=== PATIENT | female | born 1960 | race Caucasian/White ===

== ENCOUNTER 2019-02-10 23:50 | Emergency (ER) | payer BC, SELFPAY ==
[2019-02-10 23:50] VITALS: BP 139/62; PULSE 104; RESP 20; TEMP 36.7; O2SAT 98
--- NOTE | 2019-02-10 23:56 | W.ED.GENAD ---
Discharge Plan Disposition Patient Disposition: OTHER Condition: Improving Discharge Details Chief Complaint: PsychEval Clinical Impression: Alcohol abuse with intoxication Primary Care Provider: Catalina Harmon ED Provider: Stalin Pavon Home Meds and New Rx's Prescriptions: Continued multivitamin [Daily Multiple] 1 EACH tablet 1 ea PO DAILY RF: 0 coenzyme Q10 100 MG capsule 100 mg PO DAILY RF: 0 lutein 20 MG capsule 20 mg PO DAILY RF: 0 alprazolam 0.25 MG tablet,disintegrating 0.25 mg PO PRN RF: 0 omega-3 fatty acids-fish oil [One-Per-Day [place]-3] 1 EACH capsule,delayed release(DR/EC) 1 ea PO DAILY RF: 0 cholecalciferol (vitamin D3) 5,000 UNIT tablet 5,000 unit PO DAILY RF: 0 aspirin 325 MG tablet 325 mg PO DAILY Qty: 30 RF: 0 milk thistle 175 MG tablet 300 mg PO DAILY RF: 0 ascorbate calcium 500 MG tablet 500 mg PO DAILY RF: 0 hawthorn [hawthorn eddy] 500 MG capsule 500 mg PO DAILY RF: 0 Tumeric 500 mg PO DAILY RF: 0 Discharge Instructions Instructions: Abuse of Alcohol (ED) Additional Instructions: You are medically stable for discharge from the emergency department. Medical Decision Making 58-year-old female who is daily drinker of alcohol. Became upset at home and voiced depression due to some stress in her relationship. EMS was called, patient had ongoing voicing of depression without clear plan to hurt herself. She admits to drinking alcohol and was brought to the emergency department for evaluation. Patient arrives she is afebrile, anxious and crying, does not wish to participate actively in my history taking. Screening medical examination performed including laboratory analysis. Is intoxicated with alcohol level of 250. She is seen by mental health, no longer voicing thoughts of harming herself. She will be discharged from the emergency department to the [place] crisis bed. Lab Data Lab results reviewed: Yes I reviewed the patient's lab results. Laboratory Results - last 24 hr 02/11/19 02/11/19 02/11/19 00:10 00:10 00:10 WBC 7.39 RBC 4.93 Hgb 14.6 Hct 41.9 MCV 85.0 MCH 29.6 MCHC 34.8 RDW 13.7 Plt Count 258 MPV 11.1 H Immature Gran % 0.3 Neutrophils % 71.8 Lymphocytes % 22.1 Monocytes % 4.2 Eosinophils % 1.2 Basophils % 0.4 Absolute Neutrophils 5.31 Absolute Lymphocytes 1.63 Absolute Monocytes 0.31 Absolute Eosinophils 0.09 Absolute Basophils 0.03 Sodium 138 Potassium 3.5 Chloride 103 Carbon Dioxide 22.3 Anion Gap 12.7 H BUN 9 Creatinine 0.79 Estimated GFR/1.73 m2 >= 60.00 Glucose 115 H Calcium 8.4 L Total Bilirubin 0.3 AST 21 ALT 41 Alkaline Phosphatase 76 Total Protein 7.2 Albumin 3.8 TSH 0.93 Salicylates < 2.8 L Acetaminophen < 2 L Ethyl Alcohol 251.2 HPI General Mode of arrival: EMS. Date/Time Provider Initiated Documentation: 02/11/19 00:14. Limitations to Documentation: altered mental status. Information obtained by: patient and EMS. History of Present Illness 58 year old F presents to the emergency department with the chief complaint of Drunk and depressed, described as similar to prior episodes, Quality is described as constant, Patient started experiencing this hour(s) and it has been constant. No relieving factors improve symptom(s), No exacerbating factors reported . Patient notes no other symptoms.. Patient did receive the following treatments prior to arrival, none Related Data Home Medications Medication Instructions Recorded Confirmed alprazolam 0.25 mg PO PRN 01/10/18 03/29/18 cholecalciferol (vitamin D3) 5,000 unit PO DAILY 01/10/18 03/29/18 coenzyme Q10 100 mg PO DAILY 01/10/18 03/29/18 lutein 20 mg PO DAILY 01/10/18 03/29/18 multivitamin [Daily Multiple] 1 ea PO DAILY 01/10/18 03/29/18 omega-3 fatty acids-fish oil 1 ea PO DAILY 01/10/18 03/29/18 [One-Per-Day [place]-3] Tumeric 500 mg PO DAILY 02/20/18 03/29/18 ascorbate calcium 500 mg PO DAILY 02/20/18 03/29/18 hawthorn [hawthorn eddy] 500 mg PO DAILY 02/20/18 03/29/18 milk thistle 300 mg PO DAILY 02/20/18 03/29/18 aspirin 325 mg PO DAILY #30 tab 03/29/18 Previous Rx's Medication Instructions Recorded aspirin 325 mg PO DAILY #30 tab 03/29/18 Allergies Allergy/AdvReac Type Severity Reaction Status Date / Time [id number]-Emq Reductase AdvReac Intermediate Diarrhea Unverified 02/10/19 23:58 Inhibitor General Stated Complaint: PsychEval CARLIE: 2 Review of Systems Review of Systems 8 systems reviewed and otherwise negative [facility] Medical History Anxiety Dry eyes Hyperlipidemia Lyme disease Rotator cuff syndrome Skin lesion of face Ulcerative colitis Vitamin D deficiency Surgical History Appendectomy Colonoscopy - [facility] (02/24/18) Social History Smoking/Tobacco Use Status: Former Tobacco Use Drug use: Never Details: Pt refusing to answer any questions, 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 HEAD: Normocephalic, atraumatic ENT: Mucous membranes moist, oropharynx unremarkable, External ear exam unremarkable EYES: PERRL, EOMI NECK: Full ROM, no NONI, no menigismus CHEST/RESP: Nontender, clear to auscultation bilateral, no wheeze/rhonchi/rales CARDIOVASCULAR: RRR borderline tachycardia, no murmur, rub mae. 2+ Rad pulse bilateral ABDOMEN: Soft, nontender, no mass. +Bowel sounds EXT: Full ROM, no edema, no rash Neuro: Grossly normal neurologic exam, conversant, interactive. Psych: Speech fluent, thoughts congruent, affect anxious Course Vital Signs Temperature 36.7 C 02/10/19 23:50 Pulse 104 H 02/10/19 23:50 Respiratory Rate 20 02/10/19 23:50 Blood Pressure 139/62 02/10/19 23:50 Pulse Oximetry 98 02/10/19 23:50 Temperature 36.7 C 02/10/19 23:50 Temperature Source Skin 02/10/19 23:50 Pulse 104 H 02/10/19 23:50 Respiratory Rate 20 02/10/19 23:50 Blood Pressure 139/62 02/10/19 23:50 Blood Pressure Position Supine 02/10/19 23:50 Pulse Oximetry 98 02/10/19 23:50 Oxygen Delivery Method Room Air 02/10/19 23:50 Oxygen Flow Rate 0 02/10/19 23:50
--- NOTE | 2019-02-10 23:58 | NUR.NOTE ---
Nursing Note: Pt currently laying supine crying, refuses to answer any questions but does shake head yes to verify name and .
--- NOTE | 2019-02-11 | ED.GENADUL_ITS ---
Discharge Plan Disposition Patient Disposition: OTHER Condition: Improving Discharge Details Chief Complaint: PsychEval Clinical Impression: Alcohol abuse with intoxication Primary Care Provider: Catalina Harmon ED Provider: Stalin Pavon Home Meds and New Rx's Prescriptions: Continued multivitamin [Daily Multiple] 1 EACH tablet 1 ea PO DAILY RF: 0 coenzyme Q10 100 MG capsule 100 mg PO DAILY RF: 0 lutein 20 MG capsule 20 mg PO DAILY RF: 0 alprazolam 0.25 MG tablet,disintegrating 0.25 mg PO PRN RF: 0 omega-3 fatty acids-fish oil [One-Per-Day [place]-3] 1 EACH capsule,delayed release(DR/EC) 1 ea PO DAILY RF: 0 cholecalciferol (vitamin D3) 5,000 UNIT tablet 5,000 unit PO DAILY RF: 0 aspirin 325 MG tablet 325 mg PO DAILY Qty: 30 RF: 0 milk thistle 175 MG tablet 300 mg PO DAILY RF: 0 ascorbate calcium 500 MG tablet 500 mg PO DAILY RF: 0 hawthorn [hawthorn eddy] 500 MG capsule 500 mg PO DAILY RF: 0 Tumeric 500 mg PO DAILY RF: 0 Discharge Instructions Instructions: Abuse of Alcohol (ED) Additional Instructions: You are medically stable for discharge from the emergency department. Medical Decision Making 58-year-old female who is daily drinker of alcohol. Became upset at home and voiced depression due to some stress in her relationship. EMS was called, patient had ongoing voicing of depression without clear plan to hurt herself. She admits to drinking alcohol and was brought to the emergency department for evaluation. Patient arrives she is afebrile, anxious and crying, does not wish to p articipate actively in my history taking. Screening medical examination performed including laboratory analysis. Is intoxicated with alcohol level of 250. She is seen by mental health, no longer voicing thoughts of harming herself. She will be discharged from the emergency department to the [facility] crisis bed. Lab Data Lab results reviewed: Yes I reviewed the patient's lab results. Laboratory Results - last 24 hr 02/11/19 02/11/19 02/11/19 00:10 00:10 00:10 WBC 7.39 RBC 4.93 Hgb 14.6 Hct 41.9 MCV 85.0 MCH 29.6 MCHC 34.8 RDW 13.7 Plt Count 258 MPV 11.1 H Immature Gran % 0.3 Neutrophils % 71.8 Lymphocytes % 22.1 Monocytes % 4.2 Eosinophils % 1.2 Basophils % 0.4 Absolute Neutrophils 5.31 Absolute Lymphocytes 1.63 Absolute Monocytes 0.31 Absolute Eosinophils 0.09 Absolute Basophils 0.03 Sodium 138 Potassium 3.5 Chloride 103 Carbon Dioxide 22.3 Anion Gap 12.7 H BUN 9 Creatinine 0.79 Estimated GFR/1.73 m2 >= 60.00 Glucose 115 H Calcium 8.4 L Total Bilirubin 0.3 AST 21 ALT 41 Alkaline Phosphatase 76 Total Protein 7.2 Albumin 3.8 TSH 0.93 Salicylates < 2.8 L Acetaminophen < 2 L Ethyl Alcohol 251.2 HPI General Mode of arrival: EMS . Date/Time Provider Initiated Documentation: 02/11/19 00:14 . Limitations to Documentation: altered mental status . Information obtained by: patient and EMS . History of Present Illness 58 year old F presents to the emergency department with the chief complaint of Drunk and depressed, described as similar to prior episodes, Quality is described as constant, Patient started experiencing this hour(s) and it has been constant. No relieving factors improve symptom(s), No exacerbating factors reported . Patient notes no other symptoms.. Patient did receive the following treatments prior to arrival, none Related Data Home Medications Medication Instructions Recorded Confirmed alprazolam 0.25 mg PO PRN 01/10/18 03/29/18 cholecalciferol (vitamin D3) 5,000 unit PO DAILY 01/10/18 03/29/18 coenzyme Q10 100 mg PO DAILY 01/10/18 03/29/18 lutein 20 mg PO DAILY 01/10/18 03/29/18 multivitamin [Daily Multiple] 1 ea PO DAILY 01/10/18 03/29/18 omega-3 fatty acids-fish oil 1 ea PO DAILY 01/10/18 03/29/18 [One-Per-Day [place]-3] Tumeric 500 mg PO DAILY 02/20/18 03/29/18 ascorbate calcium 500 mg PO DAILY 02/20/18 03/29/18 hawthorn [hawthorn eddy] 500 mg PO DAILY 02/20/18 03/29/18 milk thistle 300 mg PO DAILY 02/20/18 03/29/18 aspirin 325 mg PO DAILY #30 tab 03/29/18 Previous Rx's Medication Instructions Recorded aspirin 325 mg PO DAILY #30 tab 03/29/18 Allergies Allergy/AdvReac Type Severity Reaction Status Date / Time Xiekvzp-Fqb-Wts Reductase AdvReac Intermediate Diarrhea Unverified 02/10/19 23:58 Inhibitor General Stated Complaint: PsychEval CARLIE: 2 Review of Systems Review of Systems 8 systems reviewed and otherwise negative [facility] Medical History Anxiety Dry eyes Hyperlipidemia Lyme disease Rotator cuff syndrome Skin lesion of face Ulcerative colitis Vitamin D deficiency Surgical History Appendectomy Colonoscopy - [facility] (02/24/18) Social History Smoking/Tobacco Use Status: Former Tobacco Use Drug use: Never Details: Pt refusing to answer any questions, 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 HEAD: Normocephalic, atraumatic ENT: Mucous membranes moist, oropharynx unremarkable, External ear exam unremarkable EYES: PERRL, EOMI NECK: Full ROM, no NONI, no menigismus CHEST/RESP: Nontender, clear to auscultation bilateral, no wheeze/rhonchi/rales CARDIOVASCULAR: RRR borderline tachycardia, no murmur, rub mae. 2+ Rad pulse bilateral ABDOMEN: Soft, nontender, no mass. +Bowel sounds EXT: Full ROM, no edema, no rash Neuro: Grossly normal neurologic exam, conversant, interactive. Psych: Speech fluent, thoughts congruent, affect anxious Course Vital Signs Temperature 36.7 C 02/10/19 23:50 Pulse 104 H 02/10/19 23:50 Respiratory Rate 20 02/10/19 23:50 Blood Pressure 139/62 02/10/19 23:50 Pulse Oximetry 98 02/10/19 23:50 Temperature 36.7 C 02/10/19 23:50 Temperature Source Skin 02/10/19 23:50 Pulse 104 H 02/10/19 23:50 Respiratory Rate 20 02/10/19 23:50 Blood Pressure 139/62 02/10/19 23:50 Blood Pressure Position Supine 02/10/19 23:50 Pulse Oximetry 98 02/10/19 23:50 Oxygen Delivery Method Room Air 02/10/19 23:50 Oxygen Flow Rate 0 02/10/19 23:50
[2019-02-11] MEDS: Normal Saline 1,000 ML 1000 ML IV (00:10)
[2019-02-11] MEDS: Normal Saline Flush 10 ML SYR IVP (00:10)
[2019-02-11 00:20] LABS: Abs Immature Grans 0.02 k/cumm (0.0-0.09); Absolute Basophil Count 0.03 k/cumm (0.0-0.2); Absolute Eosinophil Count 0.09 k/cumm (0.0-0.7); Absolute Lymphocyte Count 1.63 k/cumm (1.2-3.4); Absolute Monocyte Count 0.31 k/cumm (0.11-0.7); Absolute Neutrophil Count 5.31 k/cumm (1.2-6.7); Basophils % 0.4; Eosinophils % 1.2; HCT 41.9 % (36.0-46.0); HGB 14.6 g/dL (12.0-15.5); Immature Grans % 0.3; Lymphocytes % 22.1; Mean Corp. HGB Concentration 34.8 g/dL (32.0-36.0); Mean Corpuscular Hemoglobin 29.6 pg (27.0-33.0); Mean Platelet Volume 11.1 fL (8.0-11.0); Monocytes % 4.2; Neutrophils % 71.8; Platelet Count 258 x1000/uL (130-400); RBC 4.93 m/cumm (4.00-5.20); RBC Distribution Width 13.7 % (11.7-14.6); White Blood Cell Count 7.39 k/cumm (4.4-10.8)
[2019-02-11 00:46] LABS: ALT 41 U/L (12-78); AST 21 U/L (15-37); Albumin 3.8 g/dL (3.4-5.0); Alkaline Phosphatase 76 U/L (46-116); Anion Gap 12.7 mmol/L (3-11); BUN 9 mg/dL (7-18); Bilirubin, Total 0.3 mg/dL (0.2-1.0); CO2 22.3 mmol/L (21.0-32.0); CREATININE 0.79 mg/dL (0.55-1.02); Calcium 8.4 mg/dL (8.5-10.1); Chloride 103 mmol/L (98-107); ETHANOL BLOOD 251.2 mg/dL (<3); Glucose 115 mg/dL (70-100); Potassium 3.5 mmol/L (3.5-5.1); Sodium 138 mmol/L (136-145); TSH 0.93 uIU/mL (0.358-3.74); Total Protein 7.2 g/dL (6.4-8.2)
[2019-02-11 01:09] LABS: Salicylate < 2.8 mg/dL (2.8-20.0)
[2019-02-11 01:11] LABS: Acetaminophen < 2 ug/mL (10-30)
== END 2019-02-11 01:42 | disposition other institution (70) ==
PROVIDERS: Emergency Provider Emergency Medicine; PCP Nurse Practitioner Family
DX: F10.120 Alcohol abuse with intoxication, uncomplicated (principal); F41.8 Other specified anxiety disorders
CPT/HCPCS: 36415; 80053; 80307; 99284; 80320; 80329; 81003; 84443; 85025

== ENCOUNTER 2019-05-21 12:52 | Outpatient (REF) | payer BC, SELFPAY ==
[2019-05-21 13:20] LABS: Anion Gap 9.7 mmol/L (3-11); BUN 12 mg/dL (7-18); CO2 25.3 mmol/L (21.0-32.0); CREATININE 0.86 mg/dL (0.55-1.02); Calcium 9.1 mg/dL (8.5-10.1); Calculated LDL 178 mg/dL; Chloride 106 mmol/L (98-107); Cholesterol 259 mg/dL (50-200); Glucose 88 mg/dL (70-100); HDL Cholesterol 64 mg/dL (40-60); Potassium 4.4 mmol/L (3.5-5.1); Sodium 141 mmol/L (136-145); Triglyceride 88 mg/dL (30-150)
== END 2019-05-21 13:12 ==
LOC: NCHCN 12:52
PROVIDERS: PCP Nurse Practitioner Family; Visit Provider Nurse Practitioner Family
DX: E78.5 Hyperlipidemia, unspecified (principal); Z00.00 Encounter for general adult medical examination without abnormal findings
CPT/HCPCS: 80048; 80061; 83721

== ENCOUNTER 2019-07-22 07:46 | Emergency (ER) | payer BC, SELFPAY ==
[2019-07-22 07:51] VITALS: BP 169/85; PULSE 85; RESP 16; TEMP 36.6; O2SAT 98
--- NOTE | 2019-07-22 08:20 | DI.CT_ITS ---
EXAM: CT CHEST PE CTA CLINICAL HISTORY: pain in back, worse breathing, sharp, mid scapula. TECHNIQUE: Examination was carried out according to the usual protocol with an intravenous administr ation of 60 cc of Omnipaque 350. COMPARISON: No exams were available for comparison FINDINGS: There is no evidence of PE. Small regions of dependent atelectasis are demonstrated. No infiltrate is seen. There is no pleural effusion. The heart is not enlarged. There is no pericardial effusion. There is no evidence of an aortic aneurysm or dissection. IMPRESSION: No evidence of PE. No evidence of acute cardiopulmonary disease.
--- NOTE | 2019-07-22 08:20 | DI.US_ITS ---
EXAM: US ABDOMEN LIMITED CLINICAL HISTORY: right shoulder pain, r/o cholecystitis. TECHNIQUE: Ultrasound performed using standard protocol. COMPARISON: No exams were available for comparison FINDINGS: Right upper quadrant ultrasound was carried out according to the usual protocol. There is no Dillard' s sign. A 2 mm echogenic area is noted in the gallbladder wall which could represent a polyp or adhe rent gallstone. There is no evidence of ductal dilatation. There are no findings to suggest acute c holecystitis. IMPRESSION: A 2 mm echogenic area is noted in the gallbladder wall which could represent a small polyp or adheren t gallstone. The examination is otherwise unremarkable.
--- NOTE | 2019-07-22 08:20 | W.ED.GENAD ---
Discharge Plan Disposition Patient Disposition: HOME Condition: Good Discharge Details Chief Complaint: Orthopedic Clinical Impression: Back pain Primary Care Provider: Catalina Harmon ED Provider: Chantell Adams Home Meds and New Rx's Prescriptions: New cyclobenzaprine 10 mg tablet 10 mg PO TID PRN (Reason: muscle spasm) Qty: 10 RF: 0 No Action multivitamin [Daily Multiple] 1 EACH tablet 1 ea PO DAILY RF: 0 coenzyme Q10 100 MG capsule 100 mg PO DAILY RF: 0 lutein 20 MG capsule 20 mg PO DAILY RF: 0 alprazolam 0.25 MG tablet,disintegrating 0.25 mg PO PRN RF: 0 One-Per-Day [place]-3 1 EACH capsule,delayed release(DR/EC) 1 ea PO DAILY RF: 0 cholecalciferol (vitamin D3) 5,000 UNIT tablet 5,000 unit PO DAILY RF: 0 aspirin 325 MG tablet 325 mg PO DAILY Qty: 30 RF: 0 milk thistle 175 MG tablet 300 mg PO DAILY RF: 0 ascorbate calcium (vitamin C) 500 MG tablet 500 mg PO DAILY RF: 0 hawthorn eddy 500 MG capsule 500 mg PO DAILY RF: 0 Tumeric 500 mg PO DAILY RF: 0 Discharge Instructions Instructions: Back Pain (ED) Additional Instructions: Ice or heat to the back for discomfort. Rest activities as tolerated. Next and muscle relaxant as prescribed. Do not drive, drink, work while taking this medication. You do have a gallstone present in the gallbladder it is unclear if this is related to your pain. Follow-up with surgeon for reevaluation as discussed. Follow-up with your primary care doctor for reevaluation. Return for any worsening, concerns, fever, increase in symptoms, worsening symptoms or alarming symptoms sooner if needed Referrals: Kerry Meza DO [OSTEOPATHIC DOCTOR] - Medical Decision Making Is a 58-year-old patient who presents for right scapula pain posteriorly. Patient denies any associated headache or dizziness. Denies chest pain, difficulty breathing or shortness of breath or wheezing. Mild increase in pain with deep breathing. Patient reports no nausea, vomiting, diarrhea. Denies changes in urination or bowel movements. Patient denies fever, chills or malaise. Patient reports she awoke with sharp pain this morning which has been constant since onset. Patient did also report 1 month ago a back pain which was worked up in the emergency room ultimately diagnosed as an ulcer. Patient did try Tums and milk this morning without relief of the pain she experienced. On exam patient has no significant reproducible pain in her back but indicates the mid of the right scapula site of pain. Patient does have mild right upper quadrant pain with palpation on exam. No peritoneal signs, rebound or guarding otherwise. Patient's vital signs are reassuring and patient is afebrile. Given patient's complaints of pain and recent episode of pain I will order CT a image of chest and an ultrasound of the right upper quadrant to be sure that there is no cardiothoracic cause of her pain or gallbladder involvement and referred pain. Troponins ordered although patient has no other associated cardiac complaints today. Patient's EKG reveals a rate of 67, sinus rhythm, no ST segment changes noted. Mild left axis shift with no significant change from previous EKG from 03/29/2018. Reviewed with my attending, Batsheva Jasmine Patient given multiple doses of pain medication to try to relieve her back pain. Patient is seemingly more comfortable however still has some persistence of pain. Toradol per provided after CT evaluation was unremarkable for dissection. Discussed differential diagnosis which includes musculoskeletal back pain, spine related radicular pain, shingles, gallbladder colic with radiation. Patient agrees to follow-up with her primary care doctor. Surgical referral provided for identified gallstones although there is no indication of cholecystitis at this time. Patient reports her understanding. Agrees with plan of care. The patient was stable. Prior to discharge, my usual and customary return precautions were reviewed with the patient - this included follow-up instructions and reasons to return to the Emergency Department if conditions worsens, does not improve as expected, or other new concerns arise. HPI General Date/Time Provider Initiated Documentation: 07/22/19 08:02. HPI Narrative: This 58-year-old woman presents to the emergency room awaking with sharp back pain reportedly near right scapula. Patient reports very sharp constant pain since awaking this morning which she believes may have woken her from sleep. Patient reports pain is intolerable. Patient denies radiation of pain. Patient does report pain is worse with deep breathing. Tried milk and Tums at home without any relief of her pain. Patient does report 1 month ago she was evaluated for back pain in the mid back which was thought to be also related after her evaluation. Does report mild epigastric discomfort. Denies any nausea, vomiting or diarrhea. Patient denies difficulty breathing, shortness of breath, cough or wheezing. Denies dizziness or headache. Denies weakness. Patient is obviously uncomfortable in bed. No new fever, chills. Patient has been able to eat and drink without difficulty. Patient does report yesterday a single isolated choking episode when having a hamburger. Otherwise no difficulty swallowing or eating. No appetite this morning Related Data Home Medications Medication Instructions Recorded Confirmed One-Per-Day [place]-3 1 ea PO DAILY 01/10/18 07/22/19 alprazolam 0.25 mg PO PRN 01/10/18 07/22/19 cholecalciferol (vitamin D3) 5,000 unit PO DAILY 01/10/18 07/22/19 coenzyme Q10 100 mg PO DAILY 01/10/18 07/22/19 lutein 20 mg PO DAILY 01/10/18 07/22/19 multivitamin [Daily Multiple] 1 ea PO DAILY 01/10/18 07/22/19 Tumeric 500 mg PO DAILY 02/20/18 07/22/19 ascorbate calcium (vitamin C) 500 mg PO DAILY 02/20/18 03/29/18 hawthorn eddy 500 mg PO DAILY 02/20/18 07/22/19 milk thistle 300 mg PO DAILY 02/20/18 07/22/19 aspirin 325 mg PO DAILY #30 tab 03/29/18 07/22/19 cyclobenzaprine 10 mg PO TID PRN #10 tab 07/22/19 Previous Rx's Medication Instructions Recorded aspirin 325 mg PO DAILY #30 tab 03/29/18 cyclobenzaprine 10 mg PO TID PRN #10 tab 07/22/19 Allergies Allergy/AdvReac Type Severity Reaction Status Date / Time Pcfeayt-Akl-Swz Reductase AdvReac Intermediate Diarrhea Unverified 07/22/19 07:53 Inhibitor General Stated Complaint: Orthopedic CARLIE: 3 Review of Systems Review of Systems ROS Unobtainable: All systems reviewed & are unremarkable except as noted in HPI and below Constitutional Constitutional: Denies chills, Denies fatigue, Denies fever(s), Denies headache(s), Denies lethargy and Denies malaise ENT Ears, Nose, Mouth, and Throat: Denies vertigo, Denies dizziness, Denies headache(s), Denies neck pain, Denies sinus pain, Denies sinus pressure and Denies sore throat Cardiovascular Cardiovascular: Denies chest pain with activity, Denies rapid heart rate, Denies lightheadedness, Denies palpitations and Denies orthopnea Respiratory Respiratory: Denies cough, Reports pain on inspiration and Denies wheezing Gastrointestinal Gastrointestinal: Reports abdominal pain (mild RUQ), Denies constipation, Denies diarrhea and Denies vomiting Genitourinary Genitourinary: Denies hematuria, Denies urinary hesitancy and Denies urinary urgency Musculoskeletal Musculoskeletal: Denies neck pain Neurologic Neurologic: Denies vertigo, Denies dizziness and Denies headache(s) Endocrine Endocrine: Denies fatigue and Denies palpitations Allergic/Immunologic Allergic/Immunologic: Denies wheezing [facility] Medical History Anxiety Dry eyes Hyperlipidemia Lyme disease Rotator cuff syndrome Skin lesion of face Ulcerative colitis Vitamin D deficiency Surgical History Appendectomy Colonoscopy - [facility] [place] (02/24/18) Social History Smoking/Tobacco Use Status: Former Tobacco Use Drug use: Never Details: Pt refusing to answer any questions, 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 Well hydrated. Alert and alert. HENMT: Head nomocephalic, normal to inspection. Atraumatic. Hearing grossly normal. EYES: General normal appearance. Alignment normal. Eyelids normal. Conjunctiva normal. NECK: Normal visual inspection. FROM. Trachea midline. No Midline tenderness. CHEST: Normal insepection of the chest. RESP: Normal respiratory effort. Speaking full sentences. No cough. No audible wheezing. No retractions. Breath sounds equal and full bilaterally. No wheezing, rhonchi or rales CARDIO: No JVD. No murmurs or rubs Back; no cervical, thoracic, lumbar pain with palpation. No pain with palpation surrounding the scapula on the right. No winging of the scapula. No obvious skin changes or swelling notable. MUSCULOSKELETAL: Normal Gait. FROM of all extremities. Full range of motion of right arm without pain reproduced and back or scapula. SKIN: Normal. Dry. No rashes. NEURO: Alert and awake. Speech clear. PSYCH: Normal affect. Cooperative. Course Vital Signs Vital signs: Vital Signs Temperature 36.6 C 07/22/19 07:51 Pulse 85 07/22/19 07:51 Respiratory Rate 16 07/22/19 07:51 Blood Pressure 169/85 H 07/22/19 07:51 Pulse Oximetry 98 07/22/19 07:51 Temperature 36.6 C 07/22/19 07:51 Temperature Source Skin 07/22/19 07:51 Pulse 85 07/22/19 07:51 Respiratory Rate 16 07/22/19 07:51 Respiratory Effort 07/22/19 07:51 Blood Pressure 169/85 H 07/22/19 07:51 Blood Pressure Position Sitting 07/22/19 07:51 Pulse Oximetry 98 07/22/19 07:51 Oxygen Delivery Method Room Air 07/22/19 07:51 Oxygen Flow Rate 0 07/22/19 07:51 Pain Level 10 07/22/19 07:51
[2019-07-22 08:51] LABS: Abs Immature Grans 0.02 k/cumm (0.0-0.09); Absolute Basophil Count 0.03 k/cumm (0.0-0.2); Absolute Lymphocyte Count 1.59 k/cumm (1.2-3.4); Absolute Monocyte Count 0.51 k/cumm (0.11-0.7); Absolute Neutrophil Count 6.18 k/cumm (1.2-6.7); Basophils % 0.4; Eosinophils % 2.3; HCT 43.6 % (36.0-46.0); HGB 14.7 g/dL (12.0-15.5); Immature Grans % 0.2; Lymphocytes % 18.6; Mean Corp. HGB Concentration 33.7 g/dL (32.0-36.0); Mean Corpuscular Hemoglobin 29.1 pg (27.0-33.0); Mean Corpuscular Volume 86.3 fL (80-95); Neutrophils % 72.5; Platelet Count 282 x1000/uL (130-400); RBC 5.05 m/cumm (4.00-5.20); RBC Distribution Width 14.2 % (11.7-14.6); White Blood Cell Count 8.53 k/cumm (4.4-10.8)
[2019-07-22] MEDS: Normal Saline Flush 10 ML SYR IVP ×2 (08:52→11:47)
[2019-07-22] MEDS: ACETAMINOPHEN 1,000 MG/100 ML BTL 400 MG IVPB (08:52)
[2019-07-22 09:30] LABS: ALT 30 U/L (14-59); AST 17 U/L (15-37); Albumin 3.9 g/dL (3.4-5.0); Alkaline Phosphatase 84 U/L (46-116); BUN 16 mg/dL (7-18); Bilirubin, Total 0.5 mg/dL (0.2-1.0); CREATININE 0.98 mg/dL (0.55-1.02); Chloride 104 mmol/L (98-107); Estimated GFR 57.89 (mL/min/1.73m2); Glucose 101 mg/dL (70-100); Lipase 127 U/L (73-393); Potassium 3.9 mmol/L (3.5-5.1); Sodium 141 mmol/L (136-145); Total Protein 7.3 g/dL (6.4-8.2)
[2019-07-22 09:31] LABS: Troponin I < 0.05 ng/mL (0.00-0.06)
[2019-07-22] MEDS: Ondansetron 4 MG/2 ML VIAL IVP (09:35)
[2019-07-22] MEDS: Omnipaque 350 MG/ML 100 ML BTL IJ (09:57)
[2019-07-22] MEDS: Normal Saline 1,000 ML 1000 ML IV (10:08)
[2019-07-22] MEDS: Ketorolac 15 MG/ML VIAL IVP (11:45)
[2019-07-22 12:17] VITALS: BP 131/76; PULSE 68; RESP 16; TEMP 36.6; O2SAT 100
[2019-07-22 12:25] VITALS: BP 131/76; PULSE 68; RESP 16; TEMP 36.6; O2SAT 100
== END 2019-07-22 12:30 | disposition home or self-care (01) ==
PROVIDERS: Emergency Provider Physician Assistant; PCP Nurse Practitioner Family
DX: M54.6 Pain in thoracic spine (principal); R10.13 Epigastric pain
CPT/HCPCS: 36415; 71275; 80053; 83690; 93005; 96361; 96365; 96375; 96376; 99285; 76705; 84484; 85025; 87086; 93010; J0131; J1885; J2405; J3490

== ENCOUNTER 2020-05-04 12:06 | Outpatient (CLI) | payer BC, SELFPAY ==
--- NOTE | 2020-05-04 | DI.RAD_ITS ---
EXAM: XR CHEST 2V PA LATERAL CLINICAL HISTORY: LT FLANK PAIN, R10.9, CHEST WALL PAIN TECHNIQUE: 2D digital imaging was performed. COMPARISON: No exams were available for comparison FINDINGS: MEDIASTINUM: Normal. HEART: Normal. PULMONARY VASCULATURE: Normal. LUNGS: Clear. PLEURAL SPACE: No pleural effusion or pneumothorax. BONE:Normal. OTHER FINDINGS:Normal. IMPRESSION: No acute pulmonary findings. DATA REPOSITORY: RADIATION DOSE DELIVERED:
--- NOTE | 2020-05-04 | DI.US_ITS ---
EXAM: US AAA SCREENING CLINICAL HISTORY: RADIATING BACK PAIN COMPARISON: CT CT CHEST PE CTA from 07/22/2019 FINDINGS: Abdominal Aorta: Proximal: 2.2 x 2.4 cm Mid: 1.8 x 1.7 cm Distal: 1.5 x 1.5 cm Iliac's: Right: 0.9 x 0.8 cm Left: 1 x 0.9 cm No significant atherosclerotic disease is seen. IMPRESSION: No evidence of abdominal aortic aneurysm. DATA REPOSITORY:
== END 2020-05-04 12:26 ==
PROVIDERS: PCP Nurse Practitioner Family; Visit Provider Nurse Practitioner Family
DX: M54.9 Dorsalgia, unspecified (principal); R10.9 Unspecified abdominal pain; R07.89 Other chest pain
CPT/HCPCS: 76706; 71046

== ENCOUNTER 2020-10-03 00:55 | Outpatient (CLI) | payer BC, SELFPAY ==
--- NOTE | 2020-10-03 | DI.MAMMO_ITS ---
EXAM: MG MAMMO SCREENING CLINICAL HISTORY: SCREENING, [facility],Z00.00 TECHNIQUE: Bilateral full field digital CC and MLO mammographic images were obtained with 3D tomosyn thesis and utilizing computer aided detection (CAD). COMPARISON: Available for comparison. FINDINGS: Masses/Architectural Distortion: There is a focal asymmetric density in the upper left breast seen on the mediolateral oblique view 5 cm from the nipple. Microcalcifications: No suspicious pleomorphic-type are seen. Skin Thickening/Nipple Retraction: None. IMPRESSION: 1. Focal asymmetric density in the upper left breast on the MLO view. 2. Spot compression view and left breast ultrasound are recommended for further evaluation. BI-RADS Category 0 - Assessment Incomplete: Need additional imaging evaluation Breast Density - Category C - Heterogeneously dense Breast density category C or D implies that the patient has dense breast tissue. Dense breast tissue is very common and is not abnormal but dense breast tissue can make it harder to find cancer on a ma mmogram. Also, dense breast tissue may increase their breast cancer risk. This information about the result of the mammogram report was provided to the patient to raise their awareness. Use this report when you speak with the patient about their risks for breast cancer, which includes their family hist ory. At that time, you may recommend for more screening tests (Ultrasound or MRI) as they might be us eful based on their risk. A negative radiographic report should not delay biopsy if a dominant or clinically suspicious mass is present. Up to ten percent of cancers are not identified on mammography. A negative report may reinforce clinical impression. Adenosis and dense breasts may obscure an underlying neoplasm. False positive reports average 6 to 10%. Patient will receive a letter notifying them of these results.
== END 2020-10-03 01:15 ==
PROVIDERS: PCP Nurse Practitioner Family; Visit Provider Nurse Practitioner Family
DX: R92.8 Other abnormal and inconclusive findings on diagnostic imaging of breast (principal); Z12.31 Encounter for screening mammogram for malignant neoplasm of breast
CPT/HCPCS: 77063; 77067

== ENCOUNTER 2020-10-12 01:20 | Outpatient (CLI) | payer BC, SELFPAY ==
--- NOTE | 2020-10-12 | DI.US_ITS ---
EXAM: MG MAMMO SCREEN CALL BACK UNI CLINICAL HISTORY: F/U MAMMO,ASYMMETRIC DENSITY UPPER LT BREAST TECHNIQUE: Mammograms were interpreted according to the usual protocol including computer analysis w ith CAD system, tomosynthesis and C-view imaging. COMPARISON: FINDINGS: Additional mammographic views the left breast and left breast ultrasound are interpreted in conjuncti on. These examinations were obtained to evaluate questionable focal area of asymmetric density in th e superior central portion of left breast seen on recent mammogram. Additional mammographic views fa il to show a discrete mass. Breast ultrasound shows no evidence of a mass or cyst. IMPRESSION: No specific evidence of malignancy at this time. Follow-up unilateral left breast mammogram recommen ded in 6 months. BI-RADS Category 3 - 6 month - Probably Benign Finding: Recommend follow-up mammography in 6 months Breast Density - Category C - Heterogeneously dense
== END 2020-10-12 01:40 ==
PROVIDERS: PCP Nurse Practitioner Family; Visit Provider Nurse Practitioner Family
DX: R92.8 Other abnormal and inconclusive findings on diagnostic imaging of breast
CPT/HCPCS: 76642; 77063; 77067

== ENCOUNTER 2021-01-28 10:11 | Emergency (ER) | payer BC, SELFPAY ==
[2021-01-28 10:15] VITALS: BP 160/92; PULSE 80; RESP 16; TEMP 37; O2SAT 98
--- NOTE | 2021-01-28 10:41 | ED.GENADUL_ITS ---
Discharge Plan Disposition Patient Disposition: HOME Condition: Stable Discharge Details Clinical Impression: Headache, Visual disturbance Primary Care Provider: Catalina Harmon ED Provider: Fanta Pickens Home Meds and New Rx's Prescriptions: Continued coenzyme Q10 100 MG capsule 100 mg PO DAILY RF: 0 alprazolam 0.25 MG tablet,disintegrating 0.25 mg PO PRN RF: 0 One-Per-Day Charlotte-3 1 EACH capsule,delayed release(DR/EC) 1 ea PO DAILY RF: 0 cholecalciferol (vitamin D3) 5,000 UNIT tablet 5,000 unit PO DAILY RF: 0 aspirin 325 MG tablet 325 mg PO DAILY Qty: 30 RF: 0 ascorbate calcium (vitamin C) 500 MG tablet 500 mg PO DAILY RF: 0 Tumeric 500 mg PO DAILY RF: 0 No Action multivitamin [Daily Multiple] 1 EACH tablet 1 ea PO DAILY RF: 0 lutein 20 MG capsule 20 mg PO DAILY RF: 0 milk thistle 175 MG tablet 300 mg PO QTUTHSA RF: 0 hawthorn eddy 500 MG capsule 500 mg PO DAILY RF: 0 cyclobenzaprine 10 mg tablet 10 mg PO TID PRN (Reason: muscle spasm) Qty: 10 RF: 0 Discharge Instructions Instructions: Migraine Headache (ED) Additional Instructions: Follow up with primary care provider in 3-5 days. Return to ED sooner if any worsening or concerns. Increase oral fluids. Please take Tylenol or ibuprofen every 4-6 hours as needed for pain. Try to decrease screen time if possible. You are placed on [facility] care management list for follow-up with neurology they should be contacting you with an appointment if you do not hear from them the next few days please call and make an appointment yourself. Return to the ED for any worsening headache, worsening episodes of blurry vision or any attempts You may try Excedrin Migraine or similar [id number]. Stand Alone Forms: Work Release Referrals: Catalina Harmon [Primary Care Provider] - Ayala Vinson MD [ [facility] STAFF PHYSICIAN] - 1 week (Visual Disturbances, Right side headache) Discharge Data Discharge Date/Time-TO BE ENTERED AT DEPARTURE: 01/28/21 12:36 Medical Decision Making 50-year-old female presents to the ER chief complaint of visual disturbances and right-sided headache which began yesterday. She states that she was at work looking at a computer screen when she saw abnormal shapes she describes flashes of white light and broken glass. She then left her place of work was driving home when a right sided headache began. She describes pain as pressure. She states that she went home took an Aleve and the pain and symptoms subsided. Today when again looking at a computer screen had another episode of the visual disturbances and return of the right sided headache she denies any ringing in her ear no nuchal rigidity she is not sensitive to sound positive photophobia. She denies any diplopia. She also reports hitting the right side of her head approximately 2 weeks ago on a window no loss of consciousness at that time however she saw stars. She has no facial droop no focal neuro deficits. She denies any numbness tingling no weakness in her extremities. She denies any fever, chills, no vomiting. She has a past medical history of anxiety, hyperlipidemia, Lyme disease, vitamin D deficiency. She denies taking any blood thinners, she has not taken aspirin in the last couple of days Labs ordered CBC and CMP which are unremarkable. Patient was given 1 L normal saline, 10 mg dexamethasone, [address] head and neck venogram ordered to rule out sinus venous sinus thrombosis or other pathology to explain the visual disturbances and headache V rad results are noted below Exam: CT Angiography Head With Contrast, Venogram Exam date and time: 01/28/2021 10:37 AM Age: 60 years old Clinical indication: Visual disturbance COMPARISON: No relevant prior studies available. FINDINGS: Cavernous Sinus: No thrombosis. Veins: No thrombosis. Arteries: There is no stenosis, occlusion, nor aneurysm. Minimal atheromatous calcification of the bilateral cavernous carotid arteries Brain: No definite mass, mass effect, or midline shift. Cerebral ventricles: No ventriculomegaly. Soft tissues: Unremarkable. Paranasal sinuses: Mild membrane thickening in left maxillary antrum IMPRESSION: 1. No venous thrombosis. 2. Normal CT angiogram of the brain Exam: CT Angiography Neck With Contrast Exam date and time: 01/28/2021 10:37 AM Age: 60 years old Clinical indication: Visual disturbance TECHNIQUE: Imaging protocol: Computed tomography angiography of the neck with contrast. 3D rendering (Not supervised by radiologist): MIP and/or 3D reconstructed images were created by the technologist. Contrast material: VIVPAUE 320; Contrast volume: 85 ml; Contrast route: INTRAVENOUS (IV); COMPARISON: No relevant prior studies available. FINDINGS: Right common carotid artery: No stenosis. No dissection or occlusion. Right internal carotid artery: No stenosis of the extracranial segment. No dissection or occlusion. Right external carotid artery: No occlusion or stenosis of the origin. Right vertebral artery: No stenosis. No dissection or occlusion. Left common carotid artery: No stenosis. No dissection or occlusion. Left internal carotid artery: No stenosis of the extracranial segment. No dissection or occlusion. Left external carotid artery: No occlusion or stenosis of the origin. Left vertebral artery: No stenosis. No dissection or occlusion. Bones/joints: No acute fracture. 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 No significant soft tissue swelling. Aortic arch: Aberrant right subclavian artery, normal variant. Atheromatous calcification the aortic arch. IMPRESSION: No stenosis or occlusion. REFERENCES: NASCET CRITERIA. The degree of internal carotid artery stenosis is based on NASCET criteria. Normal is no stenosis. Mild is less than 50% stenosis. Moderate is 50-69% stenosis. Severe is 70% to 99% stenosis. Total occlusion is no detectable patent lumen. Thank you for allowing us to participate in the care of your patient. Dictated and Authenticated by: Karishma Kolb MD 1222: Patient reevaluation she states that she feels somewhat better her pain is 5 out of 10 will order 30 mg Toradol IV. Discussed CT results with patient and plan of care for follow-up with PCP and neurology she verbalizes understanding. At this time I do strongly suspect atypical migraine with aura however differential includes CVA, seizure, mass, cluster or tension headache, sinusit is, less likely giant cell arteritis and meningitis. Patient was ambulatory with steady gait prior to discharge, alert and oriented and improved. Spoke with and discussed home care and follow-up plan he verbalizes understanding. HPI General Mode of arrival: ambulatory . Date/Time Provider Initiated Documentation: 01/28/21 10:18 . Limitations to Documentation: no limitations . Information obtained by: patient . HPI Narrative: 50-year-old female presents to the ER chief complaint of visual disturbances and right-sided headache which began yesterday. She states that she was at work looking at a computer screen when she saw abnormal shapes she describes flashes of white light and broken glass. She then left her place of work was driving home when a right sided headache began. She describes pain as pressure. She states that she went home took an Aleve and the pain and symptoms subsided. Today when again looking at a computer screen had another episode of the visual disturbances and return of the right sided headache she denies any ringing in her ear no nuchal rigidity she is not sensitive to sound positive photophobia. She denies any diplopia. She also reports hitting the right side of her head approximately 2 weeks ago on a window no loss of consciousness at that time however she saw stars. She has no facial droop no focal neuro deficits. She denies any numbness tingling no weakness in her extremities. She denies any fever chills no vomiting. She has a past medical history of anxiety, hyperlipidemia, Lyme disease, vitamin D defic iency. She denies taking any blood thinners, she has not taken aspirin in the last couple of days Related Data Home Medications Medication Instructions Recorded Confirmed One-Per-Day Charlotte-3 1 ea PO DAILY 01/10/18 01/28/21 alprazolam 0.25 mg PO PRN 01/10/18 01/28/21 cholecalciferol (vitamin D3) 5,000 unit PO DAILY 01/10/18 01/28/21 coenzyme Q10 100 mg PO DAILY 01/10/18 01/28/21 lutein 20 mg PO DAILY 01/10/18 01/28/21 multivitamin [Daily Multiple] 1 ea PO DAILY 01/10/18 07/22/19 Tumeric 500 mg PO DAILY 02/20/18 01/28/21 ascorbate calcium (vitamin C) 500 mg PO DAILY 02/20/18 01/28/21 hawthorn eddy 500 mg PO DAILY 02/20/18 01/28/21 milk thistle 300 mg PO QTUTHSA 02/20/18 01/28/21 aspirin 325 mg PO DAILY #30 tab 03/29/18 07/22/19 cyclobenzaprine 10 mg PO TID PRN #10 tab 07/22/19 Previous Rx's Medication Instructions Recorded aspirin 325 mg PO DAILY #30 tab 03/29/18 cyclobenzaprine 10 mg PO TID PRN #10 tab 07/22/19 Allergies Allergy/AdvReac Type Severity Reaction Status Date / Time Nfmbwaq-Kxa-Taq Reductase AdvReac Intermediate Diarrhea Unverified 01/28/21 10:19 Inhibitor General Stated Complaint: Headache CARLIE: 3 Review of Systems All systems reviewed & are unremarkable except as noted in HPI and below Constitutional Constitutional: Reports headache(s) ENT Ears, Nose, Mouth, and Throat: Denies dysphagia, Denies dizziness, Reports headache(s), Reports neck pain (Reports chronic neck pain, nothing new) and Denies disequilibrium Gastrointestinal Gastrointestinal: Denies dysphagia Musculoskeletal Musculoskeletal: Denies abnormal gait Neurologic Neurologic: Reports as per HPI, Denies abnormal movements, Denies abnormal speech, Denies abnormal gait, Denies confusion, Denies dizziness, Reports headache(s), Denies localized weakness, Reports other visual disturbances and Denies disequilibrium Psychiatric Psychiatric: Denies confusion [facility] Medical History (Updated 01/28/21 @ 12:31 by Fanta Pickens) Anxiety Dry eyes Hyperlipidemia Lyme disease Rotator cuff syndrome Skin lesion of face Ulcerative colitis Vitamin D deficiency Surgical History Appendectomy Colonoscopy - [facility] [place] (02/24/18) Social History Smoking/Tobacco Use Status: Former Tobacco Use Smoking risk assessment performed?: Yes Alcohol Intake: current Alcohol Intake frequency: holidays/special occasions only Alcohol type: wine Drug use: Never Substance use type: does not use Details: Pt refusing to answer any questions, per EMS has had a bottle of wine tonight [employer]ERK [employer] Do you feel safe at home: Yes Do you feel safe in your relationship?: Yes Exam Narrative Exam Narrative: Constitutional: Alert and oriented x3. Appears stated age. Normal body habitus. Head: Normocephalic, no trauma. Eyes: Pupils PERRLA, Red reflex noted, EOM's intact no. Eyelids symmetrical without lesions, discharge, or swelling. Corrected Visual acuity obtained by field staff manager is 20/30 on the left, 20/40 on the right and 20/20 bilaterally. ENT: Bilateral TM's WNL, External ear normal to inspection, no mastoid TTP, swelling, or erythema, Nasal turbinates WNL, no nasal discharge. Normal dentition, Posterior pharynx WNL, no exudate. Chest: RRR, Normal S1, S2, distal pulses intact. Resp: Lungs clear to auscultation bilaterally, no wheezes, rales, or rhonchi. Musculoskeletal: Normal gait, 5/5 strength to all four extremities. Skin: No suspicious rashes or lesions. Capillary refill less than 2 sec. Neurologic: Cranial nerves II-XII intact. Alert and oriented x 3. No focal neuro deficit no facial droop, normal [id number] bilaterally normal sensation bilateral lower extremities. Intact pedal dorsiflexion and plantarflexion. No pronator drift. Speech is clear. Hematologic/Lymphatic: No ecchymosis, no lymphadenopathy. Course Vital Signs Vital signs: Vital Signs Temperature 37.0 C 01/28/21 10:15 Pulse 80 01/28/21 10:15 Respiratory Rate 16 01/28/21 10:15 Blood Pressure 160/92 H 01/28/21 10:15 Pulse Oximetry 98 01/28/21 10:15 Temperature 37.0 C 01/28/21 10:15 Temperature Source Skin 01/28/21 10:15 Pulse 80 01/28/21 10:15 Respiratory Rate 16 01/28/21 10:15 Respiratory Effort 01/28/21 10:24 Blood Pressure 160/92 H 01/28/21 10:15 Blood Pressure Position Sitting 01/28/21 10:15 Pulse Oximetry 98 01/28/21 10:15 Oxygen Delivery Method Room Air 01/28/21 10:15 Oxygen Flow Rate 0 01/28/21 10:15 Pain Level 7 01/28/21 10:15
[2021-01-28] MEDS: Normal Saline 1,000 ML 1000 ML IV (10:45)
[2021-01-28 10:47] LABS: Abs Immature Grans 0.02 10^3/uL (0.0-0.06); Absolute Basophil Count 0.05 10^3/uL (0.0-0.2); Absolute Eosinophil Count 0.25 10^3/uL (0.0-0.7); Absolute Lymphocyte Count 2.03 10^3/uL (1.2-3.4); Absolute Monocyte Count 0.75 10^3/uL (0.1-0.8); Absolute Neutrophil Count 5.95 10^3/uL (1.2-6.7); Basophils % 0.6; Eosinophils % 2.8; HCT 46.1 % (36.0-46.0); HGB 15.4 g/dL (11.2-15.7); Immature Grans % 0.2; Lymphocytes % 22.4; MCH 29.7 pg (27.0-33.0); MCHC 33.4 % (32.0-36.0); MCV 88.8 fL (80-95); MPV 11.2 fL (8.0-11.0); Monocytes % 8.3; Neutrophils % 65.7; Nucleated RBC 0 %; Platelet Count 286 10^3/uL (130-400); RBC 5.19 10^6/uL (3.93-5.22); RDW 13.3 % (11.7-14.6); RDW-SD 43.8 fL; WBC 9.05 10^3/uL (4.4-10.8)
[2021-01-28] MEDS: Dexamethasone 10 MG/ML VIAL IVP (10:55)
[2021-01-28 11:00] LABS: ALT 34 U/L (14-59); AST 18 U/L (15-37); Albumin 4.1 g/dL (3.4-5.0); Alkaline Phosphatase 78 U/L (46-116); Anion Gap 9.2 mmol/L (3-11); BUN 11 mg/dL (7-18); Bilirubin, Total 0.5 mg/dL (0.2-1.0); CO2 26.8 mmol/L (21.0-32.0); Calcium 9.6 mg/dL (8.5-10.1); Chloride 106 mmol/L (98-107); Estimated GFR 56.18 (mL/min/1.73m2); Glucose 95 mg/dL (74-106); Potassium 4.1 mmol/L (3.5-5.1); Sodium 142 mmol/L (136-145); Total Protein 7.6 g/dL (6.4-8.2)
[2021-01-28] MEDS: Normal Saline Flush 10 ML SYR IVP (11:12)
[2021-01-28] MEDS: Normal Saline - Diluent 50 ML VIAL IV (11:12)
--- NOTE | 2021-01-28 11:20 | DI.CT_ITS ---
EXAM: CT BRAIN NECK CTA CLINICAL HISTORY: Headache, visual disturbances. TECHNIQUE: Imaging Protocol: Axial CT angiography was performed with multi-slice acquisition and mu lti-planar and/or 3D reconstructions. CONTRAST MATERIAL: Intravenous: Omnipaque 350 Contrast volume:structured data in ml COMPARISON: CT CT CHEST PE CTA from 07/22/2019 FINDINGS: CT angiography of the cervical cranial region was performed according to the usual protocol with intr avenous infusion of 85 cc of Visipaque 320.. Initial noncontrast scanning of the head is unremarkable. Visualized lung apices are clear. Visualized portions of thoracic aorta and pulmonary arterial circul ation are unremarkable. There is no evidence of a cervical mass or adenopathy. The tracheal laryngeal structures appear intact. The common, internal, and external carotid arteries are within normal limits in the cervical region w ith no evidence of aneurysm, stenosis, or dissection. The vertebral arteries are unremarkable in appearance in the cervical region with no evidence of aneu rysm, stenosis, or dissection. Intracranial portions of the internal carotid arteries appear normal with no evidence of aneurysm, st enosis, or dissection. Intracranial vertebral arteries and basilar artery appear normal with no evidence of aneurysm, stenos is or dissection. No aneurysm identified in the region of the [id number]. The anterior, middle, and posterior cer ebral arteries and major branches appear intact with no evidence of aneurysm, stenosis, or dissection . No enhancing brain lesion identified. 5 minutes delayed images also show excellent delineation of the cerebral venous structures, no eviden ce of cerebral venous thrombosis. IMPRESSION: Negative CT angiography of the cervical cranial region. RADIATION DOSE DELIVERED: 1,891.52mGy.cmTotal DLP 1,891.52mGy.cm Total DLP DATA REPOSITORY: All CT scans at this facility are submitted to the National Radiology Data Registry (NRDR) Dose Index Registry (DIR) with the [employer] (ACR). RADIATION OPTIMIZATION: All CT scans at this facility use at least one of these dose optimization te chniques: automated exposure control; mA and/or kV adjustment per patient size (includes targeted exa ms where dose is matched to clinical indication); or iterative reconstruction.
[2021-01-28 11:26] VITALS: BP 134/66; PULSE 84; RESP 17; TEMP 36.5; O2SAT 99
--- NOTE | 2021-01-28 12:03 | DI.VRAD_ITS ---
PROCEDURE INFORMATION: Exam: CT Angiography Head With Contrast, Venogram Exam date and time: 01/28/2021 10:37 AM Age: 60 years old Clinical indication: Visual disturbance TECHNIQUE: Imaging protocol: Computed tomography angiography of the head with intravenous contrast. 3D rendering (Not supervised by radiologist): MIP and/or 3D reconstructed images were created by the technologist. Contrast material: VIVPAUE 320; Contrast volume: 85 ml; Contrast route: INTRAVENOUS (IV); COMPARISON: No relevant prior studies available. FINDINGS: Cavernous Sinus: No thrombosis. Veins: No thrombosis. Arteries: There is no stenosis, occlusion, nor aneurysm. Minimal atheromatous calcification of the bilateral cavernous carotid arteries Brain: No definite mass, mass effect, or midline shift. Cerebral ventricles: No ventriculomegaly. Soft tissues: Unremarkable. Paranasal sinuses: Mild membrane thickening in left maxillary antrum IMPRESSION: 1. No venous thrombosis. 2. Normal CT angiogram of the brain PROCEDURE INFORMATION: Exam: CT Angiography Neck With Contrast Exam date and time: 01/28/2021 10:37 AM Age: 60 years old Clinical indication: Visual disturbance TECHNIQUE: Imaging protocol: Computed tomography angiography of the neck with contrast. 3D rendering (Not supervised by radiologist): MIP and/or 3D reconstructed images were created by the technologist. Contrast material: VIVPAUE 320; Contrast volume: 85 ml; Contrast route: INTRAVENOUS (IV); COMPARISON: No relevant prior studies available. FINDINGS: Right common carotid artery: No stenosis. No dissection or occlusion. Right internal carotid artery: No stenosis of the extracranial segment. No dissection or occlusion. Right external carotid artery: No occlusion or stenosis of the origin. Right vertebral artery: No stenosis. No dissection or occlusion. Left common carotid artery: No stenosis. No dissection or occlusion. Left internal carotid artery: No stenosis of the extracranial segment. No dissection or occlusion. Left external carotid artery: No occlusion or stenosis of the origin. Left vertebral artery: No stenosis. No dissection or occlusion. Bones/joints: No acute fracture. 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 No significant soft tissue swelling. Aortic arch: Aberrant right subclavian artery, normal variant. Atheromatous calcification the aortic arch. IMPRESSION: No stenosis or occlusion. REFERENCES: NASCET CRITERIA. The degree of internal carotid artery stenosis is based on NASCET criteria. Normal is no stenosis. Mild is less than 50% stenosis. Moderate is 50-69% stenosis. Severe is 70% to 99% stenosis. Total occlusion is no detectable patent lumen. Dictated and Authenticated by: Karishma Kolb MD. Ordering:LISA Jewell MD
[2021-01-28] MEDS: Ketorolac 30 MG/ML VIAL IVP (12:23)
--- NOTE | 2021-01-28 12:26 | NUR.NOTE ---
Nursing Note: Referral faxed to [facility] Neurology for follow up in 1 - 2 weeks for visual disturbances, right sided headache, new onset. Caterina Armstrong
[2021-01-28 12:29] VITALS: BP 132/76; PULSE 84; RESP 15; TEMP 36.9; O2SAT 98
== END 2021-01-28 12:36 | disposition home or self-care (01) ==
PROVIDERS: Emergency Provider Registered Nurse Emergency; PCP Nurse Practitioner Family
DX: H53.8 Other visual disturbances (principal); R51.9 Headache, unspecified
CPT/HCPCS: 70496; 70498; 80053; 96361; 96374; 96375; 99285; 85025; 99283; J1100; J1885

== ENCOUNTER 2021-04-10 01:52 | Outpatient (CLI) | payer BC, SELFPAY ==
--- NOTE | 2021-04-10 | DI.US_ITS ---
Exam(s) US BREAST LT COMPLETE MG MAMMO DIAGNOSTIC UNI EXAM: MG MAMMO DIAGNOSTIC UNI-LEFT AND COMPLETE LEFT BREAST ULTRASOUND CLINICAL HISTORY: ABNL MAMMOGRAM LT R92.8, 6 MO FU. TECHNIQUE: Both CC and MLO views of the left breast were performed and we also performed additional spot compression view of the left breast. Mammographic images were obtained with 3D Tomosynthesistec hnique and utilizing computer aided detection (CAD). Complete left breast ultrasound, including all 4 quadrants as well as the retroareolar region and lef t axilla. COMPARISON: Prior mammograms dating back to 2014, the most recent being September 2020. FINDINGS: Today's additional mammographic images lobe less concerning on the MLO view. Possible suggestion of nodule on the CC view of the left breast but equivocal on additional spot compression view. We there fore proceeded with complete left breast ultrasound. Left breast ultrasound today reveals no evidence of solid or significant cystic lesions in all 4 quad rants. Retroareolar regions unremarkable. Left axilla is negative for significant adenopathy IMPRESSION: No evidence of malignancy in left breast. Appropriate follow-up is to keep this patient yearly mammogram schedule, this implying the next [facility] mammogram would be in September 2021, with earlier imaging if a self detected breast change is no claudy. The patient was informed of the findings and follow-up recommendations prior to leaving the [facility] t today. BI-RADS Category 2 - Benign Findings Breast Density - Category C - Heterogeneously dense Breast density Category C or D implies that the patient has dense breast tissue. Dense breast tissue can make it harder to find cancer on a mammogram. Dense breast tissue is also associated with an incr eased risk of breast cancer. This information about the result of the mammogram report was provided to the patient to raise their awareness. Use this report when you speak with the patient about their risks for breast cancer, which includes their family history. At that time, you may recommend additional screening tests (Ultrasoun d or MRI) as these tests may add significant information. A negative radiographic report should not delay biopsy if a dominant or clinically suspicious mass is present. Up to ten percent of cancers are not identified on mammography. A negative report may reinforce clinical impression. Adenosis and dense breasts may obscure an underlying neoplasm. False positive reports average 6 to 10%. Patient will receive a letter notifying them of these results.
--- NOTE | 2021-04-10 14:30 | DI.MAMMO_ITS ---
Exam(s) US BREAST LT COMPLETE MG MAMMO DIAGNOSTIC UNI EXAM: MG MAMMO DIAGNOSTIC UNI-LEFT AND COMPLETE LEFT BREAST ULTRASOUND CLINICAL HISTORY: ABNL MAMMOGRAM LT R92.8, 6 MO FU. TECHNIQUE: Both CC and MLO views of the left breast were performed and we also performed additional spot compression view of the left breast. Mammographic images were obtained with 3D [employer] hn[employer] and utilizing computer aided detection (CAD). Complete left breast ultrasound, including all 4 quadrants as well as the retroareolar region and lef t axilla. COMPARISON: Prior mammograms dating back to 2014, the most recent being September 2020. FINDINGS: Today's additional mammographic images lobe less concerning on the MLO view. Possible suggestion of nodule on the CC view of the left breast but equivocal on additional spot compression view. We there fore proceeded with complete left breast ultrasound. Left breast ultrasound today reveals no evidence of solid or significant cystic lesions in all 4 quad rants. Retroareolar regions unremarkable. Left axilla is negative for significant adenopathy IMPRESSION: No evidence of malignancy in left breast. Appropriate follow-up is to keep this patient yearly mammogram schedule, this implying [facility] would be in September 2021, with earlier imaging if a self detected breast change is no claudy. The patient was informed of the findings and follow-up recommendations [facility] to [facility]. BI-RADS Category 2 - Benign Findings Breast Density - Category C - Heterogeneously dense Breast density Category C or D implies that the patient has dense breast tissue. Dense breast tissue can make it harder to find cancer on a mammogram. Dense breast tissue is also associated with an incr eased risk of breast cancer. This information about the result of the mammogram report was provided to the patient to raise their awareness. Use this report when you speak with the patient about their risks for breast cancer, which includes their family history. At that time, you may recommend additional screening tests (Ultrasoun d or MRI) as these tests may add significant information. A negative radiographic report should not delay biopsy if a dominant or clinically suspicious mass is present. Up to ten percent of cancers are not identified on mammography. A negative report may reinforce clinical impression. Adenosis and dense breasts may obscure an underlying neoplasm. False positive reports average 6 to 10%. Patient will receive a letter notifying them of these results.
== END 2021-04-10 02:12 ==
PROVIDERS: PCP Nurse Practitioner Family; Visit Provider Nurse Practitioner Family
DX: R92.8 Other abnormal and inconclusive findings on diagnostic imaging of breast (principal); R92.2 Inconclusive mammogram
CPT/HCPCS: 76642; 77061; 77065; G0279

== ENCOUNTER 2021-05-07 22:40 | Emergency (ER) | payer BC, SELFPAY ==
[2021-05-07 22:46] VITALS: BP 160/79; PULSE 89; RESP 18; TEMP 36.4; O2SAT 97
[2021-05-07 22:56] LABS: Bilirubin Negative (Negative); Blood Large (Negative); Clarity Cloudy (Clear); Glucose Negative (Negative); Ketones Trace mg/dL (Negative); Leukocyte Esterase Small (Negative); Nitrite Positive (Negative); Urobilinogen 0.2 EU/dL (Up TO 0.2); pH 6.5 (5-8)
[2021-05-07 22:59] LABS: C & S Indicated? Yes; RBC >50 HPF (0-2)
[2021-05-07] MEDS: Phenazopyridine 200 MG TAB PO (23:25)
[2021-05-07] MEDS: Sulfameth/Trimeth DS TAB 1 TAB PO (23:46)
--- NOTE | 2021-05-07 23:55 | W.ED.GENAD ---
Discharge Plan Disposition Patient Disposition: HOME Condition: Stable Discharge Details Clinical Impression: UTI (urinary tract infection), Blood in urine Primary Care Provider: Catalina Harmon ED Provider: Ruth Rust Home Meds and New Rx's Prescriptions: New sulfamethoxazole-trimethoprim [Bactrim DS] 800-160 mg tablet 1 tab PO BID Qty: 14 RF: 0 phenazopyridine [Pyridium] 200 mg tablet 200 mg PO TID PRNQty: 6 RF: 0 sulfamethoxazole-trimethoprim [Bactrim DS] 800-160 mg tablet 1 tab PO BID Qty: 14 RF: 0 Continued multivitamin [Daily Multiple] 1 EACH tablet 1 ea PO DAILY RF: 0 coenzyme Q10 100 MG capsule 100 mg PO DAILY RF: 0 lutein 20 MG capsule 20 mg PO DAILY RF: 0 alprazolam 0.25 MG tablet,disintegrating 0.25 mg PO PRN RF: 0 One-Per-Day Chaun[place]-3 1 EACH capsule,delayed release(DR/EC) 1 ea PO DAILY RF: 0 cholecalciferol (vitamin D3) 5,000 UNIT tablet 5,000 unit PO DAILY RF: 0 aspirin 325 MG tablet 325 mg PO DAILY Qty: 30 RF: 0 escitalopram oxalate 5 mg tablet 5 mg PO DAILY RF: 0 milk thistle 175 MG tablet 300 mg PO QTUTHSA RF: 0 ascorbate calcium (vitamin C) 500 MG tablet 500 mg PO DAILY RF: 0 hawthorn eddy 500 MG capsule 500 mg PO DAILY RF: 0 Tumeric 500 mg PO DAILY RF: 0 cyclobenzaprine 10 mg tablet 10 mg PO TID PRN (Reason: muscle spasm) Qty: 10 RF: 0 Discharge Instructions Instructions: Urinary Tract Infection in Women (ED) Additional Instructions: Stay hydrated Take antibiotic as prescribed Yogurt daily while on antibiotic Take the Pyridium as needed for discomfort You may also take ibuprofen or Tylenol As you have significant blood in your urine, it is recommended that you have a repeat urinalysis by your doctor in 1 week Should you have persistent blood in your urine, it is very important that you follow-up with urology I suspect your symptoms are related to a urinary tract infection at this time, however in 1 week I recommend follow-up with her doctor She develop fever, chills, inability to tolerate your antibiotics, or with any new or worsening complaints, please return to the emergency room Referrals: Catalina Harmon [Primary Care Provider] - Discharge Data Discharge Date/Time-TO BE ENTERED AT DEPARTURE: 05/07/21 23:45 Medical Decision Making Given patient gross hematuria, positive nitrates, leukocyte esterase positive and dysuria with frequency, suspect this patient has a urinary tract infection, she was initiated on oral Bactrim as she is otherwise reportedly healthy She will need repeat urinalysis in 1 week and should she have persistent blood, she is encouraged to follow-up immediately with urology in the outpatient setting as she will need additional work-up for gross hematuria Case She is discharged home in stable condition with stable vitals Pyridium and Bactrim prescription She is given very low threshold to return should she have new or worsening complaints I did consider cancer etiology or nephrolithiasis, however patient does not have CVA tenderness and given the acuity of symptoms, I have treated empirically for urinary tract infection Urine culture is pending at this time Lab Data Lab results reviewed: Yes I reviewed the patient's lab results. HPI General Mode of arrival: ambulatory. Date/Time Provider Initiated Documentation: 05/07/21 23:10. Limitations to Documentation: no limitations. Information obtained by: patient. Related Data Home Medications Medication Instructions Recorded Confirmed One-Per-Day Chauncey-3 1 ea PO DAILY 01/10/18 05/07/21 alprazolam 0.25 mg PO PRN 01/10/18 05/07/21 cholecalciferol (vitamin D3) 5,000 unit PO DAILY 01/10/18 05/07/21 coenzyme Q10 100 mg PO DAILY 01/10/18 05/07/21 lutein 20 mg PO DAILY 01/10/18 05/07/21 multivitamin [Daily Multiple] 1 ea PO DAILY 01/10/18 05/07/21 Tumeric 500 mg PO DAILY 02/20/18 05/07/21 ascorbate calcium (vitamin C) 500 mg PO DAILY 02/20/18 05/07/21 hawthorn eddy 500 mg PO DAILY 02/20/18 05/07/21 milk thistle 300 mg PO QTUTHSA 02/20/18 05/07/21 aspirin 325 mg PO DAILY #30 tab 03/29/18 05/07/21 cyclobenzaprine 10 mg PO TID PRN #10 tab 07/22/19 05/07/21 escitalopram oxalate 5 mg PO DAILY 05/07/21 05/07/21 phenazopyridine [Pyridium] 200 mg PO TID PRN #6 tab 05/07/21 sulfamethoxazole-trimethoprim 1 tab PO BID #14 tab 05/07/21 [Bactrim DS] sulfamethoxazole-trimethoprim 1 tab PO BID #14 tab 05/07/21 [Bactrim DS] Previous Rx's Medication Instructions Recorded aspirin 325 mg PO DAILY #30 tab 03/29/18 cyclobenzaprine 10 mg PO TID PRN #10 tab 07/22/19 phenazopyridine [Pyridium] 200 mg PO TID PRN #6 tab 05/07/21 sulfamethoxazole-trimethoprim 1 tab PO BID #14 tab 05/07/21 [Bactrim DS] sulfamethoxazole-trimethoprim 1 tab PO BID #14 tab 05/07/21 [Bactrim DS] Allergies Allergy/AdvReac Type Severity Reaction Status Date / Time Xbgivyt-Aoe-Epz Reductase AdvReac Intermediate Diarrhea Unverified 05/07/21 22:49 Inhibitor General Stated Complaint: Urinary CARLIE: 3 PFS Medical History (Updated 05/07/21 @ 23:34 by TA Bernabe) Anxiety Dry eyes Hyperlipidemia Lyme disease Rotator cuff syndrome Skin lesion of face Ulcerative colitis Vitamin D deficiency [place] [facility] [place] Social History Smoking/Tobacco Use Status: Former Tobacco Use Smoking risk assessment performed?: Yes Alcohol Intake: current Alcohol Intake frequency: holidays/special occasions only Alcohol type: wine Drug use: Never Substance use type: does not use Details: Pt refusing to answer any questions, per EMS 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 Do you feel safe at home: Yes Do you feel safe in your relationship?: Yes Course Vital Signs Vital signs: Vital Signs Temperature 36.4 C L 05/07/21 22:46 Pulse 89 05/07/21 22:46 Respiratory Rate 18 05/07/21 22:46 Blood Pressure 160/79 H 05/07/21 22:46 Pulse Oximetry 97 05/07/21 22:46 Temperature 36.4 C L 05/07/21 22:46 Temperature Source Temporal Artery Scan 05/07/21 22:46 Pulse 89 05/07/21 22:46 Respiratory Rate 18 05/07/21 22:46 Respiratory Effort Non-Labored 05/07/21 22:50 Blood Pressure 160/79 H 05/07/21 22:46 Blood Pressure Position Sitting 05/07/21 22:46 Pulse Oximetry 97 05/07/21 22:46 Oxygen Delivery Method Room Air 05/07/21 22:46 Oxygen Flow Rate 0 05/07/21 22:46 Pain Level 5 05/07/21 22:46 Lab/Test Results Lab/Test Results: 05/07/21 22:44 Urine - Reflex from Ua Urine Culture - Pending Laboratory Tests Range/Units 05/07/21 22:44 Urine Color (Yellow) Red Urine Clarity (Clear) Cloudy Urine pH (5-8) 6.5 Ur Specific [place] (1.005-1.025) 1.020 Urine Protein (Negative) mg/dL 100 H Urine Ketones (Negative) mg/dL Trace H Urine Blood (Negative) Large H Urine Nitrite (Negative) Positive H Urine Bilirubin (Negative) Negative Urine Urobilinogen (Up TO 0.2) EU/dL 0.2 Ur Leukocyte Esterase (Negative) Small H Urine RBC (0-2) HPF >50 H Urine WBC Not Applicable Ur Epithelial Cells Not Applicable Urine Crystals Not Applicable Urine Bacteria Not Applicable Urine Mucus Not Applicable Ur Culture Indicated? Yes Urine Glucose (Negative) mg/dL Negative
--- NOTE | 2021-05-09 08:20 | ED.GENADUL_ITS ---
Discharge Plan Disposition Patient Disposition: HOME Condition: Stable Discharge Details Clinical Impression: UTI (urinary tract infection), Blood in urine Primary Care Provider: Catalina Harmon ED Provider: Ruth Rust Home Meds and New Rx's Prescriptions: New sulfamethoxazole-trimethoprim [Bactrim DS] 800-160 mg tablet 1 tab PO BID Qty: 14 RF: 0 phenazopyridine [Pyridium] 200 mg tablet 200 mg PO TID PRNQty: 6 RF: 0 sulfamethoxazole-trimethoprim [Bactrim DS] 800-160 mg tablet 1 tab PO BID Qty: 14 RF: 0 Continued multivitamin [Daily Multiple] 1 EACH tablet 1 ea PO DAILY RF: 0 coenzyme Q10 100 MG capsule 100 mg PO DAILY RF: 0 lutein 20 MG capsule 20 mg PO DAILY RF: 0 alprazolam 0.25 MG tablet,disintegrating 0.25 mg PO PRN RF: 0 One-Per-Day [place]-3 1 EACH capsule,delayed release(DR/EC) 1 ea PO DAILY RF: 0 cholecalciferol (vitamin D3) 5,000 UNIT tablet 5,000 unit PO DAILY RF: 0 aspirin 325 MG tablet 325 mg PO DAILY Qty: 30 RF: 0 escitalopram oxalate 5 mg tablet 5 mg PO DAILY RF: 0 milk thistle 175 MG tablet 300 mg PO QTUTHSA RF: 0 ascorbate calcium (vitamin C) 500 MG tablet 500 mg PO DAILY RF: 0 hawthorn eddy 500 MG capsule 500 mg PO DAILY RF: 0 Tumeric 500 mg PO DAILY RF: 0 cyclobenzaprine 10 mg tablet 10 mg PO TID PRN (Reason: muscle spasm) Qty: 10 RF: 0 Discharge Instructions Instructions: Urinary Tract Infection in Women (ED) Additional Instructions: Stay hydrated Take antibiotic as prescribed Yogurt daily while on antibiotic Take the Pyridium as needed for discomfort You may also take ibuprofen or Tylenol As you have significant blood in your urine, it is recommended that you have a repeat urinalysis by your doctor in 1 week Should you have persistent blood in your urine, it is very important that you follow-up with urology I suspect your symptoms are related to a urinary tract infection at this time, however in 1 week I recommend follow-up with her doctor She develop fever, chills, inability to tolerate your antibiotics, or with any new or worsening complaints, please return to the emergency room Referrals: Catalina Harmon [Primary Care Provider] - Discharge Data Discharge Date/Time-TO BE ENTERED AT DEPARTURE: 05/07/21 23:45 Medical Decision Making Patient does have gross hematuria, she has nitrite positive and leukocyte esterase positive, consistent with urinary tract infection, however she has had gross hematuria, she has no post void residual fluid on bladder scans have and is reasonable to treat her with antibiotics and discharge at this time, however she is aware that she will need close outpatient reevaluation and recheck of urinalysis in 1 week, should she have persistent blood, she will need urology follow-up Given a prescription for Pyridium Return precautions discussed and patient expressed understanding Discharged home in stable condition with stable vitals, able to tolerate p.o., afebrile nontoxic Medical Records Medical records reviewed: Yes I reviewed the patient's medical records. Lab Data Lab results reviewed: Yes I reviewed the patient's lab results. HPI General Mode of arrival: ambulatory . Date/Time Provider Initiated Documentation: 05/07/21 23:10 . Limitations to Documentation: no limitations . Information obtained by: patient . HPI Narrative: This 60-year-old female presents with report some low back pain, dysuria and frequency, and hematuria. She states she has had some low back pain. The past week. She denies flank pain. She states that the dysuria and frequency with the line started today. She denies any chest pain or shortness of breath. She denies any nausea or vomiting. She denies any dizziness or weakness. She states her symptoms came on abruptly today. Pain is exacerbated with urination. She denies any abdominal pain. She has any history. Denies weight loss or night sweats. Denies history of tobacco. Related Data Home Medications Medication Instructions Recorded Confirmed One-Per-Day [place]-3 1 ea PO DAILY 01/10/18 05/07/21 alprazolam 0.25 mg PO PRN 01/10/18 05/07/21 cholecalciferol (vitamin D3) 5,000 unit PO DAILY 01/10/18 05/07/21 coenzyme Q10 100 mg PO DAILY 01/10/18 05/07/21 lutein 20 mg PO DAILY 01/10/18 05/07/21 multivitamin [Daily Multiple] 1 ea PO DAILY 01/10/18 05/07/21 Tumeric 500 mg PO DAILY 02/20/18 05/07/21 ascorbate calcium (vitamin C) 500 mg PO DAILY 02/20/18 05/07/21 hawthorn eddy 500 mg PO DAILY 02/20/18 05/07/21 milk thistle 300 mg PO QTUTHSA 02/20/18 05/07/21 aspirin 325 mg PO DAILY #30 tab 03/29/18 05/07/21 cyclobenzaprine 10 mg PO TID PRN #10 tab 07/22/19 05/07/21 escitalopram oxalate 5 mg PO DAILY 05/07/21 05/07/21 phenazopyridine [Pyridium] 200 mg PO TID PRN #6 tab 05/07/21 sulfamethoxazole-trimethoprim 1 tab PO BID #14 tab 05/07/21 [Bactrim DS] sulfamethoxazole-trimethoprim 1 tab PO BID #14 tab 05/07/21 [Bactrim DS] Previous Rx's Medication Instructions Recorded aspirin 325 mg PO DAILY #30 tab 03/29/18 cyclobenzaprine 10 mg PO TID PRN #10 tab 07/22/19 phenazopyridine [Pyridium] 200 mg PO TID PRN #6 tab 05/07/21 sulfamethoxazole-trimethoprim 1 tab PO BID #14 tab 05/07/21 [Bactrim DS] sulfamethoxazole-trimethoprim 1 tab PO BID #14 tab 05/07/21 [Bactrim DS] Allergies Allergy/AdvReac Type Severity Reaction Status Date / Time Fakszyx-Kqv-Pzq Reductase AdvReac Intermediate Diarrhea Unverified 05/07/21 22:49 Inhibitor General Stated Complaint: Urinary CARLIE: 3 Review of Systems All systems reviewed & are unremarkable except as noted in HPI and below PFSH Medical History (Updated 05/07/21 @ 23:34 by TA Bernabe) Anxiety Dry eyes Hyperlipidemia Lyme disease Rotator cuff syndrome Skin lesion of face Ulcerative colitis Vitamin D deficiency Surgical History Appendectomy Colonoscopy - [facility] [place] (02/24/18) Social History Smoking/Tobacco Use Status: Former Tobacco Use Smoking risk assessment performed?: Yes Alcohol Intake: current Alcohol Intake frequency: holidays/special occasions only Alcohol type: wine Drug use: Never Substance use type: does not use Details: Pt refusing to answer any questions, 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 Do you feel safe at home: Yes Do you feel safe in your relationship?: Yes Exam Const General: cooperative Eyes Sclera: sclerae normal Resp Effort & Inspection: normal respiratory effort Cardio Rate: regular rate Rhythm: regular rhythm GI Other: No abdominal bruit or pulsatile mass, no CVA tenderness Skin General skin exam: no rashes or lesions noted Neuro General: patient alert and patient oriented x3 Extrem Other: Distal pulses intact Psych Appearance: grossly normal Course Vital Signs Vital signs: Vital Signs Temperature 36.4 C L 05/07/21 22:46 Pulse 89 05/07/21 22:46 Respiratory Rate 18 05/07/21 22:46 Blood Pressure 160/79 H 05/07/21 22:46 Pulse Oximetry 97 05/07/21 22:46 Temperature 36.4 C L 05/07/21 22:46 Temperature Source Temporal Artery Scan 05/07/21 22:46 Pulse 89 05/07/21 22:46 Respiratory Rate 18 05/07/21 22:46 Respiratory Effort Non-Labored 05/07/21 22:50 Blood Pressure 160/79 H 05/07/21 22:46 Blood Pressure Position Sitting 05/07/21 22:46 Pulse Oximetry 97 05/07/21 22:46 Oxygen Delivery Method Room Air 05/07/21 22:46 Oxygen Flow Rate 0 05/07/21 22:46 Pain Level 5 05/07/21 22:46 Lab/Test Results Lab/Test Results: 05/07/21 22:44 Urine - Reflex from Ua Urine Culture - Preliminary Escherichia coli Laboratory Tests Range/Units 05/07/21 22:44 Urine Color (Yellow) Red Urine Clarity (Clear) Cloudy Urine pH (5-8) 6.5 Ur Specific [place] (1.005-1.025) 1.020 Urine Protein (Negative) mg/dL 100 H Urine Ketones (Negative) mg/dL Trace H Urine Blood (Negative) Large H Urine Nitrite (Negative) Positive H Urine Bilirubin (Negative) Negative Urine Urobilinogen (Up TO 0.2) EU/dL 0.2 Ur Leukocyte Esterase (Negative) Small H Urine RBC (0-2) HPF >50 H Urine WBC Not Applicable Ur Epithelial Cells Not Applicable Urine Crystals Not Applicable Urine Bacteria Not Applicable Urine Mucus Not Applicable Ur Culture Indicated? Yes Urine Glucose (Negative) mg/dL Negative
== END 2021-05-07 23:45 | disposition home or self-care (01) ==
PROVIDERS: Emergency Medicine; Emergency Provider Physician Assistant; PCP Nurse Practitioner Family
DX: N39.0 Urinary tract infection, site not specified (principal); B96.20 Unspecified Escherichia coli [E. coli] as the cause of diseases classified elsewhere; R31.0 Gross hematuria
CPT/HCPCS: 87077; 99283; 81003; 81015; 87086; 87186

== ENCOUNTER 2022-06-19 10:45 | Outpatient (REF) | payer BC, SELFPAY ==
--- OUTSIDE RECORDS SUMMARY | 2022-06-21 10:48 | XMS_ITS | Clinical Summary ---
:1960 Author Organization [facility] [place] [address] Care Team Providers Name Role Phone None Primary Care Provider Unavailable Social History Tobacco Use Types Packs/Day Years Used Date Never Assessed Sex Assigned at Date Recorded Not on file Plan of Treatment Health Maintenance Due Date Last Done Comments Covid-19 Vaccine (#1) 1963 HIV screen 1976 Hepatitis C Screening 1976 Tdap adult 1977 Tetanus vaccine 1977 HPV test 1988 PAP Smear 1988 Breast Cancer Share Decision Needed 1998 Colonoscopy 2003 Breast Cancer screening 2008 Zoster vaccine (1 of 2) 2008 Advance Directive 2013 Influenza (Flu) vaccine (1 of 1 - Influenza standard 06/14/2022 series) Insurance Payer Benefit Plan / Subscriber ID Effective Dates Phone Addre ss Type Group [facility] [id number] 2014-Jean-Claude [phone] [address] [facility] OOS PPO t [address] [place], [place] [address] 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
--- OUTSIDE RECORDS SUMMARY | 2022-06-21 10:48 | XMS_ITS | Clinical Summary ---
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
--- OUTSIDE RECORDS SUMMARY | 2022-06-21 10:48 | XMS_ITS | Encounter Summary ---
:1960 Author Organization [facility] Address [address] [place] [address] Care Team Providers Name Role Phone Unknown, Provider Primary Care Provider Encounter Details Date Type Department Care Team Description 02/24/2018 Results Only [facility] Carol Lowe, [address] [place], [place] [id number] (Wo rk) Social History Tobacco Use Types Packs/Day Years Used Date Never Assessed Sex Assigned at Date Recorded Not on file documented as of this encounter Plan of Treatment Not on filedocumented as of this encounter Procedures Procedure Name Priority Date/Time Associated Diagnosis Comme [facility] SURGICAL PATHOLOGY Routine 02/24/2018 16:51 Resul ts for this EDT procedure are i n the results section. documented in this encounter Results SURGICAL PATHOLOGY (02/24/2018 16:51 EDT) Pathology Report: SURGICAL PATHOLOGY REPORT [facility] Reports generated via electronic interface contain dank ginal data; LABORATORY however they are lacking the format of the original re port. SERVICES Caution should be taken when reading/interpreting unfo rmatted reports. Name: ? PARUL OVALLES ? Accession #: ? [id number] ? : ? 1960 (Age: [age]) ??F ? Collect Date: ? 02/24/2018 ? Location: ? [facility] ? Receive Date: ? 02/25/20 18 ? Provider: CAROL LOWE MD Copy to: [facility] ? Final Pathologic Diagnosis: A. ??COLON, ASCENDING POLYP, POLYPECTOMY: - Tubular adenoma. ?? B. ??COLON, DESCENDING POLYPS, POLYPECTOMIES: - Hyperplastic polyps. ?? C. ??COLON, RECTUM POLYPS, POLYPECTOMIES: - Hyperplastic polyps. ?? Document reviewed and electronically signed by: GINGER LAI MD Report ??Date: 02/25/2018 16:35 By the signature above, the attending physician certif ies that he/she has personally conducted a gross and/or microscopic examin ation of the described specimens and rendered or confirmed the above diagnosi s. Specimen(s) Received: A. ??Ascending colon polyp B. ??Descending colon polyps x2 C. ??Rectal polyps x2 Clinical History: Screening Gross Description: A. ?Received in formalin labelled with proper p atient identification (initials K, L) and ascending colon polyp are three curry irregular tissues ranging from 0.2 x 0.1 x 0.1 cm to 0.2 x 0.2 x 0.1 cm. Entirely submitted in A1. B. ?Received in formalin labelled with proper p atient identification (initials K, L) and descending colon po lyps x2 are two curry irregular tissues (0.2 x 0.2 x 0.1 cm and 0.2 x 0.2 x 0.2 cm). Entirely submitted in B1. C. ?Received in formalin labelled with proper p atient identification (initials K, L) and rectal polyps x2 are two curry irregular tissues (0.3 x 0.2 x 0.2 cm and 0.3 x 0.3 x 0.2 cm). Entirely submitted i n C1. 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
--- OUTSIDE RECORDS SUMMARY | 2022-06-21 10:48 | XMS_ITS | Encounter Summary ---
:1960 Author Organization [facility] [place] [address] Care Team Providers Name Role Phone None Primary Care Provider Unavailable Reason for Visit Reason Comments Skin Lesion Encounter Details Date Type Department Care Team Description 12/10/2018 Office Visit Dermatology at [facility] borrheic keratosis, Goldie Silva MD inflamed [address] [place] [address] [address] [address] [phone] [facility] [place], [place] [address] Social History Tobacco Use Types Packs/Day Years Used Date Never Assessed Sex Assigned at Date Recorded Not on file documented as of this encounter Progress Notes Tanvi Low MD - 12/10/2018 2:30 PM EST DERMATOLOGY NEW PATIENT NOTE Date of service: 12/12/2018 Ruth Ovalles : 1960 Provider: Tanvi Low MD Chief Complaint Patient presents with ??? Skin Lesion HPI Ruth Ovalles is a 58 y.o. year old female, new to me and to dermatology. Self referred. Here today for spot on the left anabaptist that's been present for some time. Patient reports it gets irritated and red at times. MEDS: No current outpatient medications on file. No current facility-administered medications for this visit. ADR: Patient has no allergy information on record. MEDICAL HISTORY: There is no problem list on file for this patient. ROS General: feeling well Skin: denies other skin complaints EXAM General: NAD, pleasant, cooperative Skin: A focused exam of the left anabaptist was performed. SIGNIFICANT SKIN FINDINGS: A. Left anabaptist::0.4-0.6 cm inflamed, well-demarcated, pink-brown papules/plaques with waxy stuck-on appearance. ASSESSMENT/PLAN: A. Inflamed Seborrheic Keratosis - Discussed benign nature of lesion(s) and provided reassurance. - Due to irritation present on today's exam and history of symptoms, discussed removal with liquid nitrogen. Discussed risk of hypopigmentation and discomfort, alternatives, and reviewed wound care. - Patient agreed to treat with cryotherapy today. ?? Procedure: Destruction of lesions with cryotherapy (LN2). Number: 1 Location: As noted above Discussed procedure and expectations including risks (including risk of hypopigmentation) and benefits. Verbal consent obtained. Frozen with LN2, 15-30 second thaw time, twice. There were no complications; the patient tolerated the procedure well. Post-procedure expectations and wound care were reviewed. Follow up in Follow up PRN. Instructed to call for questions/concerns. Note initiated by: TANVI LOW MD ? Amna Moyer, Clinical Scribe has performed the documentation for this encounter in the presence of and acting as a scribe for Dr. Tanvi Low. I performed the above scribed service and agree with the accuracy of the documentation in this encounter. I performed the above scribed service and agree with the accuracy of the documentation in this encounter. 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
--- OUTSIDE RECORDS SUMMARY | 2022-06-21 10:48 | XMS_ITS | Encounter Summary ---
:1960 Author Organization [facility] Address [address] [place] [address] Care Team Providers Name Role Phone Unknown, Provider Primary Care Provider Encounter Details Date Type Department Care Team Description 05/14/2019 Historical Results [facility] Alatorre Only [facility] - [place] us Vladimir MD [address] [facility] [address] [place] [address] [place], [place] [phone] Social History Tobacco Use Types Packs/Day Years Used Date Never Assessed Sex Assigned at Date Recorded Not on file documented as of this encounter Plan of Treatment Not on filedocumented as of this encounter Procedures Procedure Name Priority Date/Time Associated Comments Diagnosis COMPLETE BLOOD COUNT Routine 05/14/2019 12:47 Res ults for this WITH DIFFERENTIAL EDT procedure are in (AUTO) the results section. TROPONIN I Routine 05/14/2019 12:47 Results for this EDT procedure are i n the results section. D-DIMER Routine 05/14/2019 12:47 Results for this EDT procedure are i n the results section. MAGNESIUM Routine 05/14/2019 12:47 Results for this EDT procedure are i n the results section. LIPASE Routine 05/14/2019 12:47 Results for this EDT procedure are i n the results section. COMPREHENSIVE Routine 05/14/2019 12:47 Results fo r this METABOLIC PANEL (CMP) EDT proced ure are in the results section. documented in this encounter Results MAGNESIUM (05/14/2019 12:47 EDT) Pathologist Sig nature Magnesium 2.00 1.7 - 2.8 mg/dL [facility] Comment: CENTER LAB Slight Hemolysis, Interpret results with caution. Veri fied Hemolysis Visually Specimen Performing Organization Address City/[facility]/ZIP Code Phon e Number [facility] [address] [place] [address] [facility] LIPASE (05/14/2019 12:47 EDT) Pathologist Sig nature Lipase 146 <251 U/L [facility] L AB Specimen Performing Organization Address City/[facility]/ZIP Code Phon e Number [facility] [address] [place] [address] [facility] COMPREHENSIVE METABOLIC PANEL (CMP) (05/14/2019 12:47 EDT) ALBUMIN - [facility] 4.2 3.4 - 4.9 [facility] Comment: g/dL [facility] Slight Hemolysis, Interpret results with caution. Veri fied Hemolysis Visually ALKALINE 69 38 - 126 U/L [facility] PHOSPHATASE [facility] Comment: [facility] CENTER LAB Slight Hemolysis, Interpret results with caution. Veri fied Hemolysis Visually BILIRUBIN TOTAL 0.5 0.2 - 1.3 [facility] mg/dL [facility] BUN - [facility] 15 10 - 26 mg/dL [facility] Comment: [facility] CENTER LAB Slight Hemolysis, Interpret results with caution. Veri fied Hemolysis Visually CALCIUM - [facility] 9.7 8.5 - 10.5 [facility] mg/dL [facility] Chloride 104 96 - 110 [facility] mmol/L [facility] CO2 Total 24 22 - 32 mEq/L [facility] CREATININE 0.70 0.52 - 1.04 [facility] mg/dL [facility] eGFR >60 [facility] Comment: MED CENTER LAB Chronic renal impairment is defined as GFR <60 Multiply result by 1.210 for patients . eGFR calculated using the IDMS-traceable MDRD Study Equation. ??(effective 08/16/2014) Anion Gap 10 0 - 18 [facility] GLUCOSE - [facility] 85 70 - 100 [facility] mg/dL [facility] Potassium 4.4 3.5 - 5.0 [facility] Comment: mEq/L [facility] CENTER LAB Slight Hemolysis, Interpret results with caution. Veri fied Hemolysis Visually Sodium 138 136 - 145 [facility] mEq/L [facility] TOTAL PROTEIN - 6.9 6.2 - 8.2 [facility] gm/dL [facility] SGOT/AST - [facility] 31 14 - 36 U/L [facility] Comment: [facility] CENTER LAB Slight Hemolysis, Interpret results with caution. Veri fied Hemolysis Visually SGPT/ALT - [facility] 24 9 - 52 U/L [facility] Specimen Performing Organization Address [facility]/ZIP Code Phon e Number [facility] [address] LAB TROPONIN I (05/14/2019 12:47 EDT) [facility] Troponin I <0.034 0.000 - [facility] (ng/mL) Comment: 0.034 ng/mL [facility] Interpretation comments: ??Cutoff for a positive troponin result is set at the 99th percentile of the upper reference limit. ??Elevated troponin must always be interpreted in the context of the clinical presentation. ?Serial troponin testing 3-6 hr from baseline is fav ored over relying on a single troponin level. ?? The results of this assay can be falsely lowered d ue to the consumption of Biotin. Specimen Performing Organization Address [facility] Phon e Number [facility] [address] LAB D-DIMER (05/14/2019 12:47 EDT) [facility] D-Dimer <150 <230 ng/mLDDU [facility] Comment: CENTER LAB CUTOFF VALUE FOR THE EXCLUSION OF DVT and PE: 230 ng/mL D-dimer units. Any use of the age-adjusted cutoff value is a post-trupti lytic modification of this FDA-approved test and is consider ed off-label use of the test result. [facility] Laboratory do es not have literature to support the validity of an age-adju sted cutoff for our specific assay. Specimen Narrative [facility] - 019 14:26 EDT AOT: 05/14/19 1403: DIMER Performing Organization Address [facility] Phon e Number [facility] [address] LAB COMPLETE BLOOD COUNT WITH DIFFERENTIAL (AUTO) (05/14/2019 12:47 EDT) [facility] ABSOLUTE NEUTROPHIL 8.2 2.2 - 8.85 [facility] COUN - [facility] 10e3/uL CENTER LAB BASO # - [facility] 0.08 0.01 - 0.11 [facility] 10e/uL [facility] BASO % - [facility] 1 0 - 2 % [facility] EOS # - [facility] 0.33 0.03 - 0.61 [facility] 10e3/ul [facility] EOS % - [facility] 3 0 - 5 % [facility] GRAN % - [facility] 66.7 40 - 80 % [facility] HEMATOCRIT - [facility] 41.4 34.9 - 44.4 % [facility] HEMOGLOBIN - [facility] 13.9 11.6 - 15.2 g/dl [facility] IG# - [facility] 0.05 0 - 0.7 10e3/uL [facility] IG% - [facility] 0.4 0 - 0.9 % [facility] LYMPH # - [facility] 2.8 1.09 - 3.3 [facility] 10e3/ul [facility] LYMPH% - [facility] 23.0 20 - 40 % [facility] MEAN CORPUSCULAR HGB - 29.3 26.7 - 33.3 pg [facility]ENTER LAB MEAN CORPUSCULAR HGB 33.6 32.1 - 35.9 g/dL [facility] CONC [facility] CENTER LAB MEAN CELL VOLUME - 87.3 81 - [address] [facility] MONO # - [facility] 0.8 0.1 - 0.8 [facility] 10e3/uL [facility] MONO% - [facility] 6.5 0 - 12 % [facility] PLATELET COUNT 285 141 - 377 [facility] 10e3/[facility] LAB RED BLOOD COUNT - [facility] 4.74 3.86 - 5.04 [facility] ME D 10e3/ul [facility] RED CELL DISTRI WIDTH 13.2 <14.7 % [facility] WHITE BLOOD COUNT - 12.2 4.0 - 12.4 [facility] 10e3/ul [facility] Specimen Performing Organization Address City/State/ZIP Code Phon e Number [facility] [address] [place] [address] [facility] documented in this encounter Visit Diagnoses Not on filedocumented in this encounter Care Teams Marker Machine Relationship Specialty Start Date End Date Unknown, Provider, PCP - General 02/24/18 documented as of this encounter
== END 2022-06-19 10:46 ==
LOC: LBN 10:45
PROVIDERS: PCP Nurse Practitioner Family; Visit Provider Nurse Practitioner Family
DX: R30.0 Dysuria (principal)
CPT/HCPCS: 87077; 87086; 87186

== ENCOUNTER 2022-08-10 15:02 | Outpatient (REF) | payer BC, SELFPAY | END 2022-08-10 15:03 | disposition home or self-care (01) | LOC: NCHCN 15:02 | PROVIDERS: PCP Nurse Practitioner Family; Visit Provider Nurse Practitioner Family | DX: N39.0 Urinary tract infection, site not specified | CPT/HCPCS: 87086 ==

== ENCOUNTER → 2022-08-13 09:43 | Outpatient (CLI) | payer BC, SELFPAY ==
--- NOTE | 2022-08-13 | DI.RAD_ITS ---
Exam(s) XR KNEE LT 3V AP,LAT,BECCA EXAM: XR KNEE LT 3V AP,LAT,BECCA CLINICAL HISTORY: LEFT KNEE PAIN M25.562. TECHNIQUE: 2D digital imaging was performed. Three views. COMPARISON: No exams were available for comparison FINDINGS: BONES: No acute fracture is present. No bony destructive lesion is seen. JOINTS: The knee is normally aligned. No joint effusion is seen. SOFT TISSUE: Normal. IMPRESSION: Normal radiographs of the left knee. DATA REPOSITORY: RADIATION DOSE DELIVERED:
== END ==
PROVIDERS: PCP Nurse Practitioner Family; Visit Provider Nurse Practitioner Family
DX: M25.562 Pain in left knee (principal)
CPT/HCPCS: 73562

== ENCOUNTER 2022-09-19 10:45 | Outpatient (REF) | payer BC, SELFPAY | END 2022-09-19 10:46 | disposition home or self-care (01) | LOC: LBN 10:45 | PROVIDERS: PCP Nurse Practitioner Family; Visit Provider Family Medicine | DX: R35.0 Frequency of micturition (principal) | CPT/HCPCS: 87077; 87086; 87186 ==

== ENCOUNTER 2022-12-31 02:06 | Outpatient (CLI) | payer BC, SELFPAY ==
--- NOTE | 2022-12-31 | DI.MAMMO_ITS ---
Exam(s) MAMMO SCREENING EXAM: MAMMO SCREENING CLINICAL HISTORY: SCREENING, Z12.39. TECHNIQUE: Bilateral full field digital CC and MLO mammographic images were obtained with 3D tomosyn thesis and utilizing computer aided detection (CAD). COMPARISON: Prior mammograms were reviewed. FINDINGS: There has been no significant change in the appearance and distribution of the fibroglandular tissue. There are no new spiculated masses nor malignant appearing microcalcification groups. There is no significant architectural distortion nor skin thickening-retraction. IMPRESSION: No radiographic evidence of malignancy. BI-RADS Category 1 - Negative Breast Density - Category C - Heterogeneously dense Breast density Category C or D implies that the patient has dense breast tissue. Dense breast tissue can make it harder to find cancer on a mammogram. Dense breast tissue is also associated with an incr eased risk of breast cancer. This information about the result of the mammogram report was provided to the patient to raise their awareness. Use this report when you speak with the patient about their risks for breast cancer, which includes their family history. At that time, you may recommend additional screening tests (Ultrasoun d or MRI) as these tests may add significant information. A negative radiographic report should not delay biopsy if a dominant or clinically suspicious mass is present. Up to ten percent of cancers are not identified on mammography. A negative report may reinforce clinical impression. Adenosis and dense breasts may obscure an underlying neoplasm. False positive reports average 6 to 10%. Patient will receive a letter notifying them of these results.
== END 2022-12-31 02:26 ==
PROVIDERS: PCP Nurse Practitioner Family; Visit Provider Nurse Practitioner Family
DX: Z12.31 Encounter for screening mammogram for malignant neoplasm of breast (principal)
CPT/HCPCS: 77063; 77067